=== PATIENT | female | born 1960 | race Caucasian/White ===

== ENCOUNTER → 2020-04-23 | Outpatient (REF) | payer BC, OTHER | LOC: M SFHCWAGY 17:18 | PROVIDERS: ATTEND Nurse Practitioner Women's Health | DX: Z12.4 Encounter for screening for malignant neoplasm of cervix (principal) ==

== ENCOUNTER → 2022-03-13 | Outpatient (REF) | LOC: M RAD 10:24 | PROVIDERS: ATTEND Surgery | DX: R92.8 Other abnormal and inconclusive findings on diagnostic imaging of breast (principal) ==

== ENCOUNTER 2023-11-25 07:52 | Day surgery (SDC) | payer BC ==
[~2023-11-25] VITALS: Ht 165.1 cm; Wt 72.0 kg
[2023-11-25] MEDS ORDERED: LR 1,000 ML IV SCH (08:30)
[2023-11-25] MEDS ORDERED: LIDOCAINE 2% 100MG/5ML SDV (FOR ANES.) As Ordered ONE (09:24)
[2023-11-25] MEDS ORDERED: propofoL 200 MG/20 ML VIAL As Ordered ONE (09:24)
[2023-11-25] MEDS ORDERED: ONDANSETRON 4MG 2ML VIAL As Ordered ONE (09:24)
[2023-11-25] MEDS ORDERED: MIDAZOLAM INJ 2MG/2ML VIAL As Ordered ONE (09:27)
[2023-11-25] MEDS ORDERED: fentaNYL 100 MCG/2 ML INJECTION As Ordered ONE (09:27)
[2023-11-25] MEDS: ceFAZolin SOD 2 GM in IV 1 EA IV ONE (10:39)
[2023-11-25] MEDS ORDERED: ACETAMINOPHEN 1000MG 100ML IV BAG As Ordered ONE (10:39)
[2023-11-25] MEDS: LIDOCAINE 2% W/EPINEPHRINE 20ML VIAL **PRES FREE As Ordered ONE (11:45)
[2023-11-25] MEDS: BACITRACIN OINTMENT 30GM TUBE As Ordered ONE (11:45)
[2023-11-25] MEDS: LIDOCAINE W/EPINEPHRINE 1% 20ML VIAL As Ordered ONE (11:46)
[2023-11-25] MEDS ORDERED: oxyCODONE 5MG TAB PO PRN (12:35)
[2023-11-25 13:20] VITALS: BP 160/77; TEMP 97.1; O2SAT 98
== END 2023-11-25 13:31 | disposition home or self-care (01) ==
LOC: M SDC 07:52
PROVIDERS: ATTEND Plastic Surgery Surgery of the Hand
DX: C44.319 Basal cell carcinoma of skin of other parts of face (principal); D22.39 Melanocytic nevi of other parts of face; D22.0 Melanocytic nevi of lip; L57.8 Other skin changes due to chronic exposure to nonionizing radiation
CPT/HCPCS: 11444; 11641; 12052; 88305; J0131; J0690; J1100; J2250; J2405; J3010